=== PATIENT | male | born 1965 | race Caucasian/White ===

== ENCOUNTER 2021-05-27 12:41 | Emergency (ER) | payer BC ==
[2021-05-27] MEDS ORDERED: Norflex 60 MG/2 ML IM ONE (13:29)
[2021-05-27] MEDS ORDERED: TORAdol 30 mg Injection IM ONE (13:29)
[2021-05-27] MEDS ORDERED: TORAdol 30 mg Injection ONE (13:31)
[2021-05-27] MEDS ORDERED: Norflex 60 MG/2 ML ONE (13:31)
--- NOTE | 2021-05-27 13:40 | ERPHSYRPT ---
- History of Present Illness Time Seen by Provider: 05/27/21 13:38 Source: patient Exam Limitations: no limitations Patient Subjective Stated Complaint: back pain Triage Nursing Assessment: Patient brought back to ED per w/c and transferred self to bed. Patient A+O X3. Patient's skin pink, warm and dry. Patient complains of right lower back pain for the past week, but he twisted wrong today and has been in constant pain 7/10. No visible injuries or bruising noted. Patient's right leg also noted to be warm, red and swollen. Patient reports having hx of cellulitis. Physician History: Patient complains of right lower back pain for the past week, but he twisted wrong today and has been in constant pain 7/10. Pain radiate to left leg Timing/Duration: week(s) (one week) Method of Injury: bending, twisted Quality: dull, radiating Back Pain Location: lumbar spine Back Pain Radiation: lower legs Severity of Pain-Max: moderate Severity of Pain-Current: moderate Modifying Factors: Improves With: nothing Associated Symptoms: denies symptoms Previous symptoms: same symptoms as today Allergies/Adverse Reactions: No Known Drug Allergies Allergy (Unverified 05/27/21 12:50) Home Medications: Amlodipine Besylate 5 mg [Norvasc 5 mg] 1 tab PO DAILY 05/27/21 [History] Losartan/Hydrochlorothiazide [Losartan-Hctz 100-12.5 mg Tab] 1 tab PO DAILY 05/27/21 [History] Hx Influenza Vaccination/Date Given: No Hx Pneumococcal Vaccination/Date Given: No Immunizations Up to Date: Yes Travel Risk - International Travel Have you traveled outside of the country in past 3 weeks: No - Coronavirus Screening Are you exhibiting any of the following symptoms?: No Close contact with a COVID-19 positive Pt in past 14-21 Days: No - Vaccine Status Have you recieved a Covid-19 vaccination: Yes 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[employer] Constitutional: No Fever, No Chills Eyes: No Symptoms Ears, Nose, & Throat: No Symptoms Respiratory: No Cough, No Dyspnea Cardiac: No Chest Pain, No Edema, No Syncope Abdominal/Gastrointestinal: No Abdominal Pain, No Nausea, No Vomiting, No D iarrhea Genitourinary Symptoms: No Dysuria Musculoskeletal: Back Pain, No Neck Pain, No Fall Skin: No Rash Neurological: No Dizziness, No Focal Weakness, No Sensory Changes Psychological: No Symptoms Endocrine: No Symptoms All Other Systems: Reviewed and Negative - Past Medical History Pertinent Past Medical History: Yes Neurological History: No Pertinent History ENT History: No Pertinent History Cardiac History: High Cholesterol Respiratory History: No Pertinent History Endocrine Medical History: No Pertinent History Musculoskeletal History: No Pertinent History GI Medical History: No Pertinent History History: No Pertinent History Psycho-Social History: No Pertinent History Male Reproductive Disorders: No Pertinent History - Past Surgical History Past Surgical History: No Neuro Surgical History: No Pertinent History Cardiac: No Pertinent History Respiratory: No Pertinent History Gastrointestinal: No Pertinent History Genitourinary: No Pertinent History Musculoskeletal: No Pertinent History Male Surgical History: No Pertinent History - Social History Smoking Status: Never smoker Exposure to second hand smoke: Yes Drug Use: none Patient Lives Alone: No - Nursing Vital Signs Nursing Vital Signs: Initial Vital Signs Temperature 98.1 F 05/27/21 12:53 Pulse Rate 76 05/27/21 12:53 Respiratory Rate 18 05/27/21 12:53 Blood Pressure 147/88 05/27/21 12:53 O2 Sat by Pulse Oximetry 98 05/27/21 12:53 Pain Scale Pain Intensity 8 - Physical Exam General Appearance: no apparent distress, alert Eye Exam: PERRL/EOMI, eyes nml inspection Neck Exam: normal inspection, non-tender, supple, full range of motion, No meningismus, No midline tenderness Respiratory Exam: normal breath sounds, lungs clear, No respiratory distress Cardiovascular Exam: regular rate/rhythm, normal heart sounds Gastrointestinal Exam: soft, No tenderness, No mass Back Exam: decreased range of motion, muscle spasm, No vertebral tenderness, No point tenderness Extremity Exam: normal inspection, normal range of motion, No calf tenderness, No pedal edema Neurologic Exam: alert, oriented x 3, cooperative, 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 tested, normal mood/affect, nml station & gait, sensation nml, No motor deficits Skin Exam: normal color, warm, dry, No rash SpO2: 98 - Course Nursing assessment & vital signs reviewed: Yes - Radiology Exams L-Spine X-ray Interpretation: Reviewed by me Ordered Tests: Active Orders 24 hr Category Date Time Status LUMBAR COMPLETE (MIN 4 VIEWS) Stat Exams 05/27/21 13:29 Ordered Medication Summary Discontinued Medications Generic Name Dose Route Start Last Admin Trade Name Freq PRPreeti Reason Stop Dose Admin Ketorolac Tromethamine 60 mg 05/27/21 13:29 05/27/21 13:35 Toradol 30 Mg Injection IM 05/27/21 13:30 60 mg STAT ONE Administration Ketorolac Tromethamine Confirm 05/27/21 13:31 Toradol 30 Mg Injection Administered 05/27/21 13:32 Dose 60 mg .ROUTE .STK-MED ONE Orphenadrine Citrate 60 mg 05/27/21 13:29 05/27/21 13:35 Norflex 60 Mg/2 Ml IM 05/27/21 13:30 60 mg STAT ONE Administration Orphenadrine Citrate Confirm 05/27/21 13:31 Norflex 60 Mg/2 Ml Administered 05/27/21 13:32 Dose 60 mg .ROUTE .STK-MED ONE - Progress Progress: improved, pain not gone completely Counseled pt/family regarding: diagnosis, need for follow-up, rad results - Departure Departure Disposition: Home Clinical Impression: Disc disease, degenerative, lumbar or lumbosacral Lumbago with sciatica, left side Qualifiers: Chronicity: acute Back pain laterality: right Qualified Code(s): M54.42 - Lumbago with sciatica, left side Condition: Stable Critical Care Time: No Referrals: CHRISTINA RICHARDSON MD [Primary Care Provider] - Instructions: Low Back Pain (DC), Sciatica (DC) Additional Instructions: Discharge/Care Plan JOSEPH MATIAS was seen on 05/27/21 in the Emergency Room. The patient was counseled regarding Diagnosis,Lab results, Imaging studies, need for follow up and when to return to the Emergency Room. Prescriptions given: Discharge Note I have spoken with the patient and/or caregivers. I have explained the patient's condition, diagnosis and treatment plan based on the information available to me at this time. I have answered the patient's and/or caregiver's questions and addressed any concerns. The patient and/or caregivers have as good understanding of the patient's diagnosis, condition and treatment plan as can be expected at this point. The vital signs have been stable. The patient's condition is stable and appropriate for discharge from the emergency department. The patient will pursue further outpatient evaluation with the primary care physician or other designated or consulting physician as outlined in the discharge instructions. The patient and/or caregivers are agreeable to this plan of care and follow-up instructions have been explained in detail. The patient and/or caregivers have received these instruction. The patient/and or caregivers are aware that any significant change in condition or worsening of symptoms should prompt an immediate return to this or the closest emergency department or call 911. JOSEPH MATIAS was seen on 05/27/21 n the Emergency Room. At that time you were treated for an emergent condition, during your visit Laboratory, Radiology and/or other procedures may have been ordered. It is very important that you follow-up with your Primary Care Physician CHRISTINA RICHARDOSN within the next 24- 48 hours to review your Emergency Room visit and the final results of testing that was ordered. Some test results such as Urine Cultures, Blood Cultures, and other cultures if ordered will not be finalized for 24-48 hours. If you do not have a Primary Care Provider please call the medical records department at [phone] ext [phone] to obtain a copy of your results or you may sign into our patient portal to obtain these results by visiting us @ [email or web address] and completing the following steps: 1. Click on the Patient Portal link 2. Click the Patient Self Enrollment Link to complete the enrollment form and entering your 3. Once the enrollment form is completed you will receive an email with a temporary ID and password at the email address you provided. 4. Next choose a user name and password. Your user name must be at least 4 characters long and your password must be at least 4 characters long. 5. Choose a security question from the list and provide your answer to the question. If you already have signed into the Health Portal you may access your Health Care Information 21/04 by the following steps: 1. Login to our website @ [email or web address] 2. Enter your original user name and password. FAQS The [facility] Health Portal is an online tool that contains your Lab Results, Radiology Reports, Visit History, Discharge Instructions and Health Summary Lab and Radiology Results will not be available for 72 hours on the portal. The Portal is a secure site, passwords are encryted and URLs are re-written so they cannot be copied and pasted. You and authorized family members are the only ones who can access your Portal. Also there is a timeout feature that protects your information if you leave the Portal page open. If you have technical difficulty please use the Contact Us link on the page this will allow you to submit any questions you have regarding the Portal or you may contact the Medical Record Department at [phone] ext [phone]. Forms: Work/School Release Form Prescriptions: Cyclobenzaprine HCl 10 mg [Flexeril 10 MG] 10 mg PO TID #20 tablet Naproxen 500 mg [Naprosyn 500 MG] 500 mg PO BIDAC #14 tablet
[2021-05-27 14:30] VITALS: BP 128/77; PULSE 68; O2SAT 96
--- NOTE | 2021-05-27 18:56 | XRAY ---
Indication: Left back pain. No known injury. Comparison: None 5 view lumbar spine demonstrates 5 lumbar segments with minimal levoscoliosis centered at L1, minimal/mild multilevel thoracolumbar degenerative endplate spurring, mild L5-S1 disc space narrowing, mild bilateral L5-S1 check to facet arthropathy, and minimal vascular calcifications. No other bony, articular, or soft tissue abnormalities. Impression: Nonacute lumbar spine with chronic features.
== END 2021-05-27 14:35 | disposition home or self-care (01) ==
LOC: ED 12:41
DX: M54.42 Lumbago with sciatica, left side (principal); M51.36 Other intervertebral disc degeneration, lumbar region
CPT/HCPCS: 72110; 96372; 99284; J1885; J2360

== ENCOUNTER 2023-05-16 16:55 | Emergency (ER) | payer OTHER ==
--- NOTE | 2023-05-16 17:02 | ERPHSYRPT ---
- History of Present Illness Time Seen by Provider: 05/16/23 17:01 Source: patient, family Exam Limitations: no limitations Physician History: This is a 57-year-old white male patient of Dr. Marmolejo who is a daily consumer of alcohol and he was out [place] in [place] he did trip and hit his head at that time. Since that fall and hitting of his head 6 days ago, he has been having dizziness. This patient does have a history of hypertension. He is not on any anticoagulation therapy. Dr. Marmolejo ordered a CAT scan of the head of this patient. The CAT scan of the head without contrast was interpreted by the radiologist. His report states 1.3 x 5.4 cm right occipital, 0.7 x 2.7, subcentimeter right frontal acute subdural hematomas. Also, 2.0 x 1.3 cm inferior left frontal lobe acute parenchymal hemorrhage. No significant mass effect or fracture. Patient presents to the emergency department hemodynamically stable and neurologically intact. Occurred: days ago (6) Head Injury Location: frontal, occipital Method of Injury: fell Loss of Consciousness: no loss of consciousness Associated Symptoms: other (Patient states mild dizziness but no other symptoms), No headaches Allergies/Adverse Reactions: No Known Drug Allergies Allergy (Verified 05/16/23 16:57) Home Medications: Amlodipine Besylate 5 mg [Norvasc 5 mg] 1 tab PO DAILY 05/27/21 [History] Losartan/Hydrochlorothiazide [Losartan-Hctz 100-12.5 mg Tab] 1 tab PO DAILY 05/27/21 [History] Hx Influenza Vaccination/Date Given: No Hx Pneumococcal Vaccination/Date Given: No Travel Risk - International Travel Have you traveled outside of the country in past 3 weeks: No - Coronavirus Screening Are you exhibiting any of the following symptoms?: No Close contact with a COVID-19 positive Pt in past 14-21 Days: No - Vaccine Status Have you recieved a Covid-19 vaccination: 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 Constitutional: No Symptoms Eyes: No Symptoms Ears, Nose, & Throat: No Symptoms Respiratory: No Symptoms Cardiac: No Symptoms Abdominal/Gastrointestinal: No Symptoms Genitourinary Symptoms: No Symptoms Musculoskeletal: No Symptoms Skin: No Symptoms Neurological: Dizziness, No Headache Psychological: No Symptoms Endocrine: No Symptoms Hematologic/Lymphatic: No Symptoms Immunological/Allergic: No Symptoms All Other Systems: Reviewed and Negative - Past Medical History Pertinent Past Medical History: Yes Neurological History: No Pertinent History ENT History: No Pertinent History Cardiac History: Hypertension Respiratory History: No Pertinent History Endocrine Medical History: No Pertinent History Musculoskeletal History: No Pertinent History GI Medical History: No Pertinent History History: No Pertinent History Psycho-Social History: No Pertinent History Male Reproductive Disorders: No Pertinent History - Past Surgical History Past Surgical History: No Neuro Surgical History: No Pertinent History Cardiac: No Pertinent History Respiratory: No Pertinent History Gastrointestinal: No Pertinent History Genitourinary: No Pertinent History Musculoskeletal: No Pertinent History Male Surgical History: No Pertinent History - Social History Smoking Status: Never smoker Exposure to second hand smoke: Yes Drug Use: none Patient Lives Alone: No - Nursing Vital Signs Nursing Vital Signs: Initial Vital Signs Pulse Rate 70 05/16/23 17:00 Respiratory Rate 18 05/16/23 17:00 Blood Pressure 149/83 05/16/23 17:00 O2 Sat by Pulse Oximetry 97 05/16/23 17:00 Pain Scale Pain Intensity 0 - [place] Coma Score Best Eye Response ([place]): (4) open spontaneously Best Verbal Response ([place]): (5) oriented Best Motor Response ([place]): (6) obeys commands [place] Total: 15 - Physical Exam General Appearance: no apparent distress, alert Head Injury: no evidence of injury (No external areas of noticeable injury) Eye Exam: bilateral eye: normal inspection, PERRL, EOMI ENT Exam: airway nml, nml ext.inspection, No evidence of ENT injury Neck Exam: supple, trachea midline, full range of motion, normal alignment, normal inspection Cardiovascular/Respiratory Exam: chest non-tender, no respiratory distress Gastrointestinal/Abdominal Exam: soft, non tender, no distention, no mass, no guarding, no ecchymosis, no organomegaly, no pulsatile mass, normal bowel sounds Rectal Exam: not done Back Exam: normal inspection, normal range of motion, No CVA tenderness, No vertebral tenderness Extremity Exam: non-tender, normal range of motion, normal inspection, normal capillary refill, no calf tenderness, no pedal edema, pelvis stable Mental Status Exam: alert, oriented x 3, 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 Exam: normal hearing, normal speech, PERRL Coordination/Gait Exam: normal finger to nose, normal gait, normal cerebellar function Motor/Sensory Exam: no motor deficit, no sensory deficit, no pronator drift Skin Exam: normal color, warm, dry Lymphatic Exam: No adenopathy SpO2 Interpretation: normal O2 Delivery: Room Air Ordered Tests: Active Orders 24 hr Category Date Time Status EKG-ER Only STAT Care 05/16/23 17:22 Active IV Insertion-2nd Peripheral STAT Care 05/16/23 17:22 Active CERVICAL SPINE WO CONTRAST [CT] Stat Exams 05/16/23 17:22 Completed CBC W DIFF Stat Lab 05/16/23 17:20 Completed CMP Stat Lab 05/16/23 17:20 Completed ETHYL ALCOHOL Stat Lab 05/16/23 17:20 Completed PROTIME WITH INR Stat Lab 05/16/23 17:20 Completed Lab/Rad Data: Laboratory Result Diagrams 05/16/23 17:20 05/16/23 17:20 Laboratory Results 05/16/23 05/16/23 05/16/23 Range/Units 17:20 17:20 17:20 WBC 5.4 (4.0-10.5) x10^3/uL RBC 4.09 L (4.1-5.6) x10^6/uL Hgb 14.2 (12.5-18.0) g/dL Hct 37.9 L (42-50) % MCV 92.7 (78-100) fL MCH 34.7 H (26-32) pg MCHC 37.5 H (32-36) g/dL RDW 10.7 L (11.5-14.0) % Plt Count 164 (150-450) x10^3/uL MPV 9.7 (7.5-11.0) fL Gran % 66.2 H (36.0-66.0) % Immature Gran % (Auto) 0.4 (0.00-0.4) % Nucleat RBC Rel Count 0.0 (0.00-0.1) % Eos # (Auto) 0.05 (0-0.5) x10^3/uL Immature Gran # (Auto) 0.02 (0.00-0.03) x10^3u/L Absolute Lymphs (auto) 1.06 (1.0-4.6) x10^3/uL Absolute Monos (auto) 0.68 (0.0-1.3) x10^3/uL Absolute Nucleated RBC 0.00 (0.00-0.01) x10^3u/L Lymphocytes % 19.6 L (24.0-44.0) % Monocytes % 12.5 H (0.0-12.0) % Eosinophils % 0.9 (0.00-5.0) % Basophils % 0.4 (0.0-0.4) % Absolute Granulocytes 3.59 (1.4-6.9) x10^3/uL Basophils # 0.02 (0-0.4) x10^3/uL PT 11.5 (9.4-12.5) SECONDS INR 1.06 (0.8-3.0) Sodium 122 L (137-145) mmol/L Potassium 3.6 (3.5-5.1) mmol/L Chloride 85 L (98-107) mmol/L Carbon Dioxide 22 (22-30) mmol/L Anion Gap 18.2 H (5-15) MEQ/L BUN 6 L (9-20) mg/dL Creatinine 0.56 L (0.66-1.25) mg/dL Estimated GFR > 60.0 ML/MIN Glucose 121 H (74-106) mg/dL Calcium 8.9 (8.4-10.2) mg/dL Total Bilirubin 1.30 (0.2-1.3) mg/dL AST 121 H (17-59) U/L ALT 98 H (0-50) U/L Alkaline Phosphatase 69 (38-126) U/L Serum Total Protein 8.4 H (6.3-8.2) g/dL Albumin 4.6 (3.5-5.0) g/dL Ethyl Alcohol < 10 (0-10) mg/dL - Progress Progress: unchanged Progress Note: 05/16/23 19:56 This patient's medical history was of high medical complexity. The work-up performed is based on review of the patient's past medical history, review of the patient's medication list, review the patient's drug allergy list, history of present illness and physical findings on examination. This patient has a work-up that includes a CT scan of the head without contrast that was performed prior to arrival to the emergency department and that is what prompted him to be sent to our emergency department. The evidence of subdural hematoma and intracranial parenchymal hemorrhage was discussed and described in the history of present illness. I reviewed the results of the laboratory work-up. Patient does have hyponatremia. I also reviewed the impression of the radiologist interpretation of the CT scan of the cervical spine. There is no fractures present. There are advanced degenerative changes. There is severe bilateral neuroforaminal stenoses between C2-C3, C3-C4. There are also neuroforaminal stenoses but mild bilateral C4-C5, C5-C6 and C6-C7. We discussed the above findings with the patient and his spouse. We will be contacting [facility] in [place] to discuss transfer of this patient to their facility. 05/16/23 20:36 [facility] in [place] was contacted. The patient, because of the mechanism of injury and the findings on CT scan of the head, was automatically excepted. The accepting physician is Dr. Ledezma. There was no need for me to discuss the issue with the emergency room at [facility]. Counseled pt/family regarding: lab results, diagnosis, need for follow-up, rad results Medical Desision Making - Independent Historian Additional History obtained from: Spouse - Diagnostic Testing Diagnostic test were ordered, analyzed, and reviewed by me: Yes Radiological Interpretation: Reviewed by me, Teleradiologist Report - Risk of complications The pt has a high risk of morbidity or mortality based on: Decision regarding hospitilization or escalation of hosp level of care - Departure Departure Disposition: Transfer Clinical Impression: Intracranial hemorrhage, Subdural hematoma, Hyponatremia Condition: Stable Critical Care Time: Yes Critical Care Time(excluding separately billable procedures): Critical 30-74 mins (40 minutes) Referrals: CHRISTINA MARMOLEJO MD [Primary Care Provider] - Follow up/PCP as directed
[2023-05-16 17:09] VITALS: TEMP 97.2
[2023-05-16 17:32] LABS: INR 1.06 (0.8-3.0); PROTIME 11.5 SECONDS (9.4-12.5)
[2023-05-16 17:34] LABS: ALBUMIN 4.6 g/dL (3.5-5.0); ALKALINE PHOSPHATASE 69 U/L (38-126); ANION GAP 18.2 MEQ/L (5-15); BLOOD UREA NITROGEN 6 mg/dL (9-20); CHLORIDE 85 mmol/L (98-107); Calcium 8.9 mg/dL (8.4-10.2); Carbon Dioxide 22 mmol/L (22-30); Creatinine 1 0.56 mg/dL (0.66-1.25); EST GLOMERULAR FILTRATION RATE > 60.0 ML/MIN; ETHYL ALCOHOL < 10 mg/dL (0-10); Glucose 121 mg/dL (74-106); Potassium 3.6 mmol/L (3.5-5.1); SGOT/AST 121 U/L (17-59); SGPT/ALT 98 U/L (0-50); SODIUM 122 mmol/L (137-145); Total Protein 8.4 g/dL (6.3-8.2)
[2023-05-16 17:52] LABS: Absolute Neutrophil Ct (ANC) 3.59 x10^3/uL (1.4-6.9); BASOPHIL % 0.4 % (0.0-0.4); Basophil (Absolute #) 0.02 x10^3/uL (0-0.4); Eosinophil % 0.9 % (0.00-5.0); Eosinophil (Absolute #) 0.05 x10^3/uL (0-0.5); Hematocrit 37.9 % (42-50); Hemoglobin 14.2 g/dL (12.5-18.0); IMMATURE GRAN # 0.02 x10^3u/L (0.00-0.03); IMMATURE GRAN % 0.4 % (0.00-0.4); Lymphocyte (Absolute #) 1.06 x10^3/uL (1.0-4.6); Lymphocytes % 19.6 % (24.0-44.0); Mean Cell Volume 92.7 fL (78-100); Mean Corpuscular Hemoglobin 34.7 pg (26-32); Mean Corpuscular Hgb Concent. 37.5 g/dL (32-36); Mean Platelet Volume 9.7 fL (7.5-11.0); Monocyte (Absolute #) 0.68 x10^3/uL (0.0-1.3); Monocytes % 12.5 % (0.0-12.0); Neutrophil % 66.2 % (36.0-66.0); Platelet Count 164 x10^3/uL (150-450); Red Blood Count 4.09 x10^6/uL (4.1-5.6); Red Cell Distribution Width 10.7 % (11.5-14.0); White Blood Count 5.4 x10^3/uL (4.0-10.5)
[2023-05-16 18:12] VITALS: RESP 18; O2SAT 98
--- NOTE | 2023-05-16 19:52 | XRAY ---
CLINICAL HISTORY:Fall COMPARISON:None TECHNIQUE:Thin axial CT of the cervical spine was performed with sagittal and coronal reconstructions FINDINGS: No evidence of compression fracture was detected. Alignment and osseous structures: Straightening of cervical lordosis likely due to muscle spasm. Advanced degenerative changes in the form of ventral osteophytic lipping, and subchondral sclerosis, subchondral cysts and vacuum phenomenon. The vertebral bodies are normal in height. No lytic or sclerotic bone lesion. The craniovertebral measures are unremarkable C2-C3 anterolisthesis grade I. Intervertebral disc spaces: The disc height are narrowed in all cervical discs. Level by Level analysis: C2-C3: 6 mm pseudo disc bulge, severe bilateral neuroforaminal stenosis. No central canal stenosis. C3-C4: 3.5 mm diffuse disc bulge, severe bilateral neuroforaminal stenosis. No central canal stenosis. C4-C5: 5 mm diffusedisc bulge, mild bilateral neuroforaminal stenosis. No central canal stenosis. C5-C6: 4.4 mm diffusedisc bulge, mild bilateral neuroforaminal stenosis. No central canal stenosis. C6-C7: 3.8 mm central disc bulge, mild bilateral neuroforaminal stenosis. No central canal stenosis. C7-T1: No central canal or neuroforaminal stenosis. IMPRESSION: No evidence of fracture was detected. Straightening of cervical lordosis likely due to muscle spasm. Advanced degenerative changes in the form of ventral osteophytic lipping, and subchondral sclerosis, subchondral cysts and vacuum phenomenon. C2-C3 anterolisthesis grade I. C2-C3 till C6-C7 disc bulges as described. Electronically Signed by: Myles Beard MD. (05/16/2023 18:51:46 PACKAGING SPECIALIST)
[2023-05-16] MEDS ORDERED: Sodium Chloride 0.9% 1000 ML 1,000 ML IV STA (21:22)
[2023-05-16] MEDS ORDERED: Sodium Chloride 0.9% 1000 ML 1,000 ML ONE (23:07)
[2023-05-16 23:35] VITALS: BP 129/81; PULSE 72
== END 2023-05-16 23:55 | disposition short-term general hospital (02) ==
LOC: ED 16:55
DX: S06.5XAA Traumatic subdural hemorrhage with loss of consciousness status unknown, initial encounter (principal); S06.35AA Traumatic hemorrhage of left cerebrum with loss of consciousness status unknown, initial encounter; W01.0XXA Fall on same level from slipping, tripping and stumbling without subsequent striking against object, initial encounter; Y92.838 Other recreation area as the place of occurrence of the external cause; E87.1 Hypo-osmolality and hyponatremia; R42 Dizziness and giddiness; I10 Essential (primary) hypertension; Z79.899 Other long term (current) drug therapy
CPT/HCPCS: 36000; 36415; 72125; 80053; 82077; 85025; 85610; 93005; 99285; 99291